=== PATIENT | female | born 1990 | race Caucasian/White ===

== ENCOUNTER 2017-09-17 21:06 | Emergency (ER) | payer MEDICAID ==
[~2017-09-17] VITALS: Ht 175.3 cm; Wt 140.5 kg
[~2017-09-17 21:06] MED LIST: ONDA8TAB9 PO; PEG4000S5 PO
[2017-09-17 21:31] VITALS: BP 147/89
[2017-09-17] MEDS ORDERED: meclizine 12.5mg tablet PO ONE (22:15)
[2017-09-17] MEDS ORDERED: LORazepam 1 MG tablet PO ONE (22:15)
[2017-09-17] MEDS ORDERED: ondansetron 4mg rapidly disintigrating tab PO ONE (22:15)
[2017-09-17] MEDS ORDERED: MECL-111 PO (23:39)
[2017-09-17] MEDS ORDERED: ONDA4TAB12 PO (23:39)
== END 2017-09-17 23:49 | disposition home or self-care (01) ==
LOC: ER 21:07
DX: R42 Dizziness and giddiness (principal); F41.9 Anxiety disorder, unspecified; F32.9 Major depressive disorder, single episode, unspecified; Z88.1 Allergy status to other antibiotic agents; Z91.030 Bee allergy status; Z88.0 Allergy status to penicillin; Z91.018 Allergy to other foods
CPT/HCPCS: 99284; J8597

== ENCOUNTER 2017-09-19 16:29 | Emergency (ER) | payer MEDICAID ==
[~2017-09-19] VITALS: Ht 175.3 cm; Wt 162.0 kg
[~2017-09-19 16:29] MED LIST changes: +MECL-111 PO; +ONDA4TAB12 PO
[2017-09-19] MEDS ORDERED: ondansetron 4mg rapidly disintigrating tab PO ONE (17:20)
[2017-09-19] MEDS ORDERED: diazepam 5mg tablet PO ONE (17:20)
[2017-09-19] MEDS ORDERED: VAL5T PO (17:34)
[2017-09-19] MEDS ORDERED: ONDA8TAB6 PO (17:34)
[2017-09-19 18:34] VITALS: BP 132/89
== END 2017-09-19 18:36 | disposition home or self-care (01) ==
LOC: ER 16:29
DX: R42 Dizziness and giddiness (principal); H93.19 Tinnitus, unspecified ear; Z90.49 Acquired absence of other specified parts of digestive tract; Z88.1 Allergy status to other antibiotic agents; Z88.0 Allergy status to penicillin; Z91.030 Bee allergy status; Z88.8 Allergy status to other drugs, medicaments and biological substances; Z79.899 Other long term (current) drug therapy
CPT/HCPCS: 71045; 93005; 99284

== ENCOUNTER 2018-07-10 15:07 | Emergency (ER) | payer MEDICAID ==
[~2018-07-10] VITALS: Ht 175.3 cm; Wt 165.9 kg
[~2018-07-10 15:07] MED LIST changes: +ONDA8TAB6 PO
[2018-07-10 15:14] VITALS: BP 146/99
[2018-07-10 16:50] LABS: BASOPHILS # (AUTO) 0.1 X10'3 (0-0.2); BASOPHILS % (AUTO) 0.8 % (0-1); EOSINOPHILS # (AUTO) 0.3 X10'3 (0-0.9); EOSINOPHILS % (AUTO) 3.8 % (0-6); HEMATOCRIT 38.1 % (35.0-45.0); HEMOGLOBIN 12.9 g/dl (12.0-16.0); LYMPHOCYTES # (AUTO) 1.7 X10'3 (1.1-4.8); LYMPHOCYTES % (AUTO) 19.9 % (21-51); MEAN CORPUSCULAR HEMOGLOBIN 28.8 PG (27.0-31.0); MEAN CORPUSCULAR HGB CONC 33.9 g/dL (33.0-36.5); MEAN CORPUSCULAR VOLUME 84.9 FL (78-98); MEAN PLATELET VOLUME 7.3 FL (7.4-10.4); MONOCYTES # (AUTO) 0.5 X10'3 (0-0.9); MONOCYTES % (AUTO) 6.4 % (2-12); NEUTROPHILS # (AUTO) 5.8 X10'3 (1.8-7.7); NEUTROPHILS % (AUTO) 69.1 % (42-75); PLATELET COUNT 323 X10'3 (140-440); RED BLOOD COUNT 4.49 X10'6 (4.20-5.60); RED CELL DISTRIBUTION WIDTH 14.3 % (11.5-14.5); WHITE BLOOD COUNT 8.3 X10'3 (4.5-11.0)
[2018-07-10 17:06] LABS: ALANINE AMINOTRANSFERASE 56 U/L (12-78); ALBUMIN 3.7 G/DL (3.4-5.0); ALKALINE PHOSPHATASE 62 IU/L (46-116); ANION GAP 7 (8-16); ASPARTATE AMINO TRANSFERASE 46 U/L (10-37); BILIRUBIN,TOTAL 0.3 MG/DL (0.1-1.0); BLOOD UREA NITROGEN 8 MG/DL (7-18); BUN/CREATININE RATIO 10.1 (6.6-38.0); CHLORIDE 106 MMOL/L (99-107); CREATININE 0.79 MG/DL (0.40-0.90); GLUCOSE 126 MG/DL (70-104); POTASSIUM 3.9 MMOL/L (3.5-5.1); SODIUM 140 MMOL/L (135-145); TOTAL CARBON DIOXIDE 27.2 MMOL/L (24-32); TOTAL PROTEIN 7.3 G/DL (6.4-8.2); eGFR 88 ML/MIN
[2018-07-10 17:08] LABS: URINE AMPHETAMINE SCREEN NEGATIVE (Neg); URINE BARBITUATE SCREEN NEGATIVE (Neg); URINE BENZODIAZEPINES SCREEN NEGATIVE (Neg); URINE CANNABINOID SCREEN NEGATIVE (Neg); URINE COCAINE SCREEN NEGATIVE (Neg); URINE METHADONE SCREEN NEGATIVE (Neg); URINE OPIATE SCREEN NEGATIVE (Neg); URINE PHENCYCLIDINE SCREEN NEGATIVE (Neg)
== END 2018-07-10 17:35 | disposition home or self-care (01) ==
LOC: ER 15:07
DX: R06.02 Shortness of breath (principal); Z00.00 Encounter for general adult medical examination without abnormal findings; Z90.49 Acquired absence of other specified parts of digestive tract; Z88.1 Allergy status to other antibiotic agents; Z91.030 Bee allergy status; Z91.018 Allergy to other foods; Z88.0 Allergy status to penicillin; Z79.899 Other long term (current) drug therapy
CPT/HCPCS: 36415; 80053; 80305; 85025; 99283

== ENCOUNTER 2020-09-14 18:28 | Emergency (ER) | payer MEDICAID ==
[~2020-09-14] VITALS: Ht 177.8 cm; Wt 159.0 kg
[~2020-09-14 18:28] MED LIST changes: -MECL-111 PO; +MECL-159 PO
[2020-09-14 19:02] LABS: BASOPHILS % (AUTO) 0.5 % (0-1); EOSINOPHILS # (AUTO) 0.2 X10'3 (0-0.9); EOSINOPHILS % (AUTO) 2.2 % (0-6); HEMATOCRIT 41.4 % (35.0-45.0); HEMOGLOBIN 13.9 g/dl (12.0-16.0); LYMPHOCYTES # (AUTO) 2.6 X10'3 (1.1-4.8); LYMPHOCYTES % (AUTO) 26.1 % (21-51); MEAN CORPUSCULAR HEMOGLOBIN 29.2 PG (27.0-31.0); MEAN CORPUSCULAR HGB CONC 33.6 g/dL (33.0-36.5); MEAN CORPUSCULAR VOLUME 86.8 FL (78-98); MEAN PLATELET VOLUME 7.1 FL (7.4-10.4); MONOCYTES # (AUTO) 0.7 X10'3 (0-0.9); MONOCYTES % (AUTO) 6.6 % (2-12); NEUTROPHILS # (AUTO) 6.5 X10'3 (1.8-7.7); NEUTROPHILS % (AUTO) 64.6 % (42-75); PLATELET COUNT 319 X10'3 (140-440); RED BLOOD COUNT 4.76 X10'6 (4.20-5.60); RED CELL DISTRIBUTION WIDTH 14.2 % (11.5-14.5)
[2020-09-14 19:10] LABS: ALANINE AMINOTRANSFERASE 25 U/L (12-78); ALBUMIN 3.6 G/DL (3.4-5.0); ALBUMIN/GLOBULIN RATIO 0.9 (1.1-1.5); ALKALINE PHOSPHATASE 52 IU/L (46-116); ANION GAP 6 (8-16); ASPARTATE AMINO TRANSFERASE 19 U/L (10-37); BILIRUBIN,TOTAL 0.3 MG/DL (0.1-1.0); BLOOD UREA NITROGEN 12 MG/DL (7-18); CALCIUM 9.3 MG/DL (8.5-10.1); CHLORIDE 105 MMOL/L (99-107); CREATININE 0.75 MG/DL (0.40-0.90); GLUCOSE 96 MG/DL (70-104); POTASSIUM 4.3 MMOL/L (3.5-5.1); SODIUM 140 MMOL/L (135-145); TOTAL CARBON DIOXIDE 28.8 MMOL/L (24-32); TOTAL PROTEIN 7.5 G/DL (6.4-8.2); eGFR > 90 ML/MIN
[2020-09-14 19:19] LABS: TROPONIN I < 0.04 NG/ML (0.0-0.05)
[2020-09-14 22:52] LABS: D-DIMER < 0.19 MG/L FEU (0-0.50)
[2020-09-14 23:00] VITALS: BP 144/84
== END 2020-09-14 22:58 | disposition home or self-care (01) ==
LOC: ER 18:28
DX: R07.89 Other chest pain (principal); R00.2 Palpitations; R11.0 Nausea; F41.9 Anxiety disorder, unspecified; F32.9 Major depressive disorder, single episode, unspecified; Z90.89 Acquired absence of other organs; Z88.1 Allergy status to other antibiotic agents; Z88.0 Allergy status to penicillin; Z91.030 Bee allergy status; Z91.018 Allergy to other foods; Z79.899 Other long term (current) drug therapy
CPT/HCPCS: 36415; 71045; 80053; 83880; 84484; 85025; 85379; 93005; 99285

== ENCOUNTER 2021-10-23 16:39 | Emergency (ER) | payer MEDICAID ==
[~2021-10-23] VITALS: Ht 175.3 cm; Wt 165.0 kg
[2021-10-23 16:49] VITALS: BP 166/95
[2021-10-23 17:29] LABS: CLARITY,URINE SLIGHTLY CLOUDY (Clear); COLOR,URINE YELLOW (Yellow); GLUCOSE, URINE NEGATIVE (Neg); KETONES,URINE TRACE mg/dl (Neg); LEUKOCYTE ESTERASE ,URINE NEGATIVE (Neg); NITRITES, URINE NEGATIVE (Neg); OCCULT BLOOD,URINE LARGE (Neg); PH,URINE 5.5 (4.8-8.0); PROTEIN,URINE NEGATIVE (Neg); URINE HCG NEGATIVE (NEG); UROBILINOGEN,URINE 0.2 E.U/dL (0.2-1.0)
[2021-10-23 17:29] LABS: EOSINOPHILS # (AUTO) 0.5 X10'3 (0-0.9); HEMOGLOBIN 12.5 g/dl (12.0-16.0); MEAN CORPUSCULAR HEMOGLOBIN 26.4 PG (27.0-31.0)
[2021-10-23 17:31] LABS: BASOPHILS # (AUTO) 0.1 X10'3 (0-0.2); BASOPHILS % (AUTO) 0.5 % (0-1); HEMATOCRIT 38.3 % (35.0-45.0); LYMPHOCYTES # (AUTO) 4.1 X10'3 (1.1-4.8); MEAN CORPUSCULAR HGB CONC 32.6 g/dL (33.0-36.5); MEAN PLATELET VOLUME 7.3 FL (7.4-10.4); MONOCYTES # (AUTO) 0.7 X10'3 (0-0.9); MONOCYTES % (AUTO) 5.8 % (2-12); NEUTROPHILS # (AUTO) 6.6 X10'3 (1.8-7.7); NEUTROPHILS % (AUTO) 55.7 % (42-75); PLATELET COUNT 425 X10'3 (140-440); RED BLOOD COUNT 4.73 X10'6 (4.20-5.60); RED CELL DISTRIBUTION WIDTH 15.2 % (11.5-14.5); WHITE BLOOD COUNT 11.9 X10'3 (4.5-11.0)
[2021-10-23 17:36] LABS: UA COLLECTION TYPE CLN CATCH MIDSTREAM
[2021-10-23 17:40] LABS: ALANINE AMINOTRANSFERASE 38 U/L (12-78); ALBUMIN 3.7 G/DL (3.4-5.0); ALBUMIN/GLOBULIN RATIO 0.9 (1.1-1.5); ALKALINE PHOSPHATASE 53 IU/L (46-116); ANION GAP 11 (8-16); ASPARTATE AMINO TRANSFERASE 21 U/L (10-37); BILIRUBIN,TOTAL 0.3 MG/DL (0.1-1.0); BLOOD UREA NITROGEN 12 MG/DL (7-18); BUN/CREATININE RATIO 12.4 (6.6-38.0); CALCIUM 8.8 MG/DL (8.5-10.1); CHLORIDE 104 MMOL/L (99-107); CREATININE 0.97 MG/DL (0.40-0.90); GLUCOSE 136 MG/DL (70-104); LIPASE 107 U/L (73-393); POTASSIUM 3.4 MMOL/L (3.5-5.1); SODIUM 141 MMOL/L (135-145); TOTAL CARBON DIOXIDE 25.6 MMOL/L (24-32); eGFR 68 ML/MIN
[2021-10-23 18:40] LABS: BACTERIA,URINE FEW /HPF (Neg); RBC,URINE TNTC /HPF (0-2); SQUAMOUS EPITHELIAL CELL,UR MODERATE /LPF (FEW); WBC,URINE 0-4 /HPF (0-4)
[2021-10-23] MEDS ORDERED: ondansetron/PF 4mg/2ml inj IV ONE ×2 (20:20→20:50)
[2021-10-23] MEDS ORDERED: CefTRIAXone 2gm/D5W 50ml BAG 50 ML IV ONE (20:20)
[2021-10-23] MEDS ORDERED: normal saline 1000ML IV soln IVB ONE (20:20)
--- NOTE | 2021-10-23 20:28 | NUR ---
ULTRASOUND PAGED AT [id number]
[2021-10-23] MEDS ORDERED: ketorolac trometh. 30mg/ml inj. IV ONE (20:50)
[2021-10-23] MEDS ORDERED: HYDR-3972 PO (22:19)
[2021-10-23] MEDS ORDERED: ONDA4TAB12 PO (22:19)
== END 2021-10-23 22:35 | disposition home or self-care (01) ==
LOC: ER 16:40
DX: N93.9 Abnormal uterine and vaginal bleeding, unspecified (principal); F31.9 Bipolar disorder, unspecified; Z88.1 Allergy status to other antibiotic agents; Z91.010 Allergy to peanuts; Z79.899 Other long term (current) drug therapy; Z88.0 Allergy status to penicillin; Z91.018 Allergy to other foods
CPT/HCPCS: 36415; 74176; 76700; 80053; 81001; 81025; 83690; 85025; 99284; J7030

== ENCOUNTER 2022-04-07 10:49 | Emergency (ER) | payer MEDICAID ==
[2022-04-07 11:08] VITALS: BP 123/79
== END 2022-04-07 12:05 | disposition home or self-care (01) ==
LOC: ER 10:49
DX: R00.2 Palpitations (principal); R06.02 Shortness of breath; F31.9 Bipolar disorder, unspecified; Z88.0 Allergy status to penicillin; Z88.1 Allergy status to other antibiotic agents; Z91.018 Allergy to other foods; Z91.030 Bee allergy status
CPT/HCPCS: 93005; 99283; 99285

== ENCOUNTER 2023-11-03 00:04 | Emergency (ER) | payer MEDICAID ==
[~2023-11-03] VITALS: Ht 175.3 cm; Wt 155.9 kg
[~2023-11-03 00:04] MED LIST changes: -MECL-159 PO; +MECL-302 PO; +ONDA-243 PO; -ONDA4TAB12 PO
[2023-11-03 00:07] VITALS: TEMP 97.9
[2023-11-03] MEDS ORDERED: ONDA-243 PO (00:39)
[2023-11-03] MEDS ORDERED: DOXY-1 PO (00:45)
[2023-11-03 00:51] VITALS: BP 144/82; PULSE 106; O2SAT 97
[2023-11-03] MEDS: ondansetron 4mg/5ml UD cup PO ONE (00:57)
[2023-11-03] MEDS: DOXYCYCLINE 100MG CAPSULE PO STA (00:58)
[2023-11-03] MEDS: naproxen 500mg tablet PO ONE (00:58)
[2023-11-03 00:59] VITALS: RESP 17
[2023-11-03] MEDS: HYDROcodone/acetaminophen 5mg/325mg tablet PO ONE (00:59)
== END 2023-11-03 01:13 | disposition home or self-care (01) ==
LOC: ER 00:05
DX: G89.29 Other chronic pain (principal); M25.562 Pain in left knee; M25.561 Pain in right knee; L03.116 Cellulitis of left lower limb; M25.462 Effusion, left knee; M25.461 Effusion, right knee; F32.A Depression, unspecified; F41.9 Anxiety disorder, unspecified; Z88.1 Allergy status to other antibiotic agents; Z91.030 Bee allergy status; Z88.0 Allergy status to penicillin; Z88.8 Allergy status to other drugs, medicaments and biological substances; Z79.2 Long term (current) use of antibiotics; Z79.899 Other long term (current) drug therapy; Z90.49 Acquired absence of other specified parts of digestive tract
CPT/HCPCS: 99284; A6449

== ENCOUNTER 2025-03-15 16:22 | Emergency (ER) | payer MEDICAID ==
[~2025-03-15] VITALS: Ht 180.3 cm; Wt 167.4 kg
--- NOTE | 2025-03-15 17:24 | Physician Documentation ---
HPI ~ General Chief Complaint: Tooth Problem Stated Complaint: TOOTH PAIN Time Seen by MD: 18:41 Primary Medical Doctor: pita west History of Present Illness HPI Comment Patient is seen today with complaints of dental pain of lower left molar. Patient has multiple fillings that states this tooth broke and she did receive clindamycin 300 mg couple of days ago and states he has taken four doses so far. She states she feels his over head is on fire and was concerned she might be going septic because she just feels funny. Patient states her friend recommended her be checked out for sepsis. Patient has no other concern or complaint at this time. 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/16) Scheduled Ondansetron (Zofran Odt), 1 TAB PO Q8H Ondansetron Hcl (Zofran), 1 TAB PO Q8H Peg 3350/Na Sulf,Bicarb,Cl/Kcl (Golytely Solution), 4,000 ML PO 10XD Scheduled PRN Meclizine HCl (Meclizine HCl), 1 TAB PO TID PRN PRN for dizziness/vertigo ONDANSETRON ODT 4mg tablet (Ondansetron Odt), 1 TABLET PO Q6H PRN for nausea/vomiting ONDANSETRON ODT 4mg tablet (Ondansetron Odt), 1 TABLET PO Q8H PRN for NAUSEA ONDANSETRON ODT 4mg tablet (Ondansetron Odt), 1 TAB PO Q6H PRN PRN for nausea/vomiting Past Medical History Past Medical History: Headache, Anxiety, Depression Past Surgical History: appendectomy Alcohol Use: None Drug Use: none Lives with: S/O, Family Lives In: Home Occupation: employed Review of Systems ROS All review of systems negative except as per HPI Physical Exam Vital Signs: Temperature: 97.7, Heart Rate: 78, Respiratory Rate: 12, BP: 156/98, Pulse Oximetry: 97, Weight: 167.400 Physical Exam General: Patient is awake, alert, oriented x4 in no acute distress Head: Normocephalic and atraumatic. Eyes: Conjunctival normal. EOMI. PERRL. ENT: Mucous membranes moist. Poor dentition. No abscess. No trismus Neck: Supple, trachea is midline. Chest: Clear to auscultation bilaterally without rales, rhonchi, or wheezes. There is no accessory muscle use or retractions. Cardiac: RRR without murmurs, gallops, or rubs. Progress Results/Orders Results/Orders Medications Received in ER Medications (Trade) Dose Ordered Sig/Talya Route PRN Reason Start Time Stop Time Status Last Admin Dose Admin (Toradol inj. 30mg/ml) 30 mg ONCE STAT IM 03/15/25 17:14 03/15/25 17:15 DC 03/15/25 18:13 30 MG (Tylenol tablet) 650 mg ONCE STAT PO 03/15/25 17:14 03/15/25 17:15 DC 03/15/25 18:14 650 MG ([place] 10/325mg tab) 1 tab ONCE STAT PO 03/15/25 17:14 03/15/25 17:16 DC 03/15/25 18:14 1 TAB Vital Signs 03/15/25 03/15/25 03/15/25 16:34 18:13 18:14 Temp 97.7 Pulse 78 Resp 12 20 20 B/P (MAP) 156/98 Pulse Ox 97 Medical Decision Making Additional information obtaine: N/A Findings Patient presented to the emergency room with dental pain as per HPI. Differentials include but are not limited to dental caries, dental abscess, deep tissue infection, referred pain, sepsis. Patient's vital signs are stable and she is not septic and she is already on antibiotics. We will give her additional pain medication. Physical exam is reassuring she is not septic appearing I do not feel patient requires imaging or labs for investigation into possible deep tissue infection. Differential Dx:Considerations: Include: Alveolar fracture, Alveolar osteitis, ANUG, Facial Cellulitis, Periapical abscess, Peridontal abscess, Post-extraction bleeding, Pulpitis, Tooth avulsion, Tooth eruption, Tooth Fracture, Trigeminal neuralgia, Tooth subluxation, Other Departure Disposition: 01 HOME / SELF CARE / HOMELESS Impression: Primary Impression: Toothache Condition: Stable Discharge Instructions: Dental Pain Referrals: NO PRIMARY CARE PROVIDER (PCP) Prescriptions Hydrocodone Bit/Acetaminophen 5/325 MG ([place] 5/325 MG) 5 Mg/325 Mg Tablet 1-2 TAB PO Q4-6 hours PRN for pain, #12 TAB Prov: DOUGLAS GARCIA MD 03/15/25 Signature Scribe Signature: No scribe Attestation: The note accurately reflects work and decisions made by me.Douglas Garcia MD 03/15/25 18:49 CYRUS ROBLERO PAC Mar 15, 2025 17:24 DOUGLAS GARCIA MD Mar 15, 2025 18:49
[2025-03-15] MEDS: ketorolac trometh 30MG/ML vial 30 MG/ML VIAL IM STA (18:13)
[2025-03-15] MEDS: HYDROcodone/acetaminophen 10/325mg tab PO STA (18:14)
[2025-03-15] MEDS ORDERED: HYDR-3965 PO (18:49)
[2025-03-15 19:05] VITALS: BP 155/92; PULSE 76; RESP 18; TEMP 98.6; O2SAT 99
--- NOTE | 2025-03-15 22:49 | Physician Documentation ---
HPI ~ General Chief Complaint: Tooth Problem Stated Complaint: TOOTH PAIN Time Seen by MD: 18:41 Primary Medical Doctor: pita west History of Present Illness HPI Comment Patient presents to the emergency room for evaluation of dental pain. She was seen recently by her primary and placed on clindamycin. She has taken ibuprofen and Tylenol with limited benefit. No fevers. She has contacted his dentist and has a appointment and a proximally a month Medication Reconciliation Allergies: Coded Allergies: amoxicillin (Verified Allergy, Unknown, 03/15/25) bee venom protein (honey bee) (Verified Allergy, Unknown, 03/15/25) guidry (Verified Allergy, Unknown, 03/15/25) penicillin V potassium (Verified Allergy, Unknown, 03/15/25) Uncoded Allergies: ALL CLINICAL UNIT EDUCATOR (Allergy, Unknown, 09/03/16) Scheduled Ondansetron (Zofran Odt), 1 TAB PO Q8H Ondansetron Hcl (Zofran), 1 TAB PO Q8H Peg 3350/Na Sulf,Bicarb,Cl/Kcl (Golytely Solution), 4,000 ML PO 10XD Scheduled PRN Hydrocodone Bit/Acetaminophen 5/325 MG ([place] 5/325 MG), 1-2 TAB PO Q4-6 hours PRN for pain Meclizine HCl (Meclizine HCl), 1 TAB PO TID PRN PRN for dizziness/vertigo ONDANSETRON ODT 4mg tablet (Ondansetron Odt), 1 TABLET PO Q6H PRN for nausea/vomiting ONDANSETRON ODT 4mg tablet (Ondansetron Odt), 1 TABLET PO Q8H PRN for NAUSEA ONDANSETRON ODT 4mg tablet (Ondansetron Odt), 1 TAB PO Q6H PRN PRN for nausea/vomiting Past Medical History Past Medical History: Headache, Anxiety, Depression Past Surgical History: appendectomy Alcohol Use: None Drug Use: none Lives with: S/O, Family Lives In: Home Occupation: employed Review of Systems ROS All review of systems negative except as per HPI Physical Exam Vital Signs: Temperature: 98.6, Source: Temporal, Heart Rate: 76, Respiratory Rate: 18, BP: 155/92, Pulse Oximetry: 99, Weight: 167.400 Physical Exam General: Patient is awake, alert, oriented x4 in no acute distress Head: Normocephalic and atraumatic. Eyes: Conjunctival normal. EOMI. PERRL. ENT: Mucous membranes moist. Poor dentition. No appreciable abscess. No facial swelling Neck: Supple, trachea is midline. Chest: Clear to auscultation bilaterally without rales, rhonchi, or wheezes. There is no accessory muscle use or retractions. Cardiac: RRR without murmurs, gallops, or rubs. Abd: Soft, nondistended, nontender, with normoactive bowel sounds. No guarding, rebound, or rigidity. Progress Results/Orders Results/Orders Medications Received in ER Medications (Trade) Dose Ordered Sig/Talya Route PRN Reason Start Time Stop Time Status Last Admin Dose Admin (Toradol inj. 30mg/ml) 30 mg ONCE STAT IM 03/15/25 17:14 03/15/25 17:15 DC 03/15/25 18:13 30 MG (Tylenol tablet) 650 mg ONCE STAT PO 03/15/25 17:14 03/15/25 17:15 DC 03/15/25 18:14 650 MG ([place] 10/325mg tab) 1 tab ONCE STAT PO 03/15/25 17:14 03/15/25 17:16 DC 03/15/25 18:14 1 TAB Vital Signs 03/15/25 03/15/25 03/15/25 03/15/25 16:34 18:13 18:14 19:05 Temp 97.7 98.6 Pulse 78 76 Resp 12 20 20 18 B/P (MAP) 156/98 155/92 Pulse Ox 97 99 Medical Decision Making Additional information obtaine: old records Findings Patient presents to the emergency room with dental pain that has per HPI. No abscess and he had not believe patient requires CT scan for investigation of deep tissue infection or labs given stable vitals. Differential Dx:Considerations: Include: Alveolar fracture, Alveolar osteitis, ANUG, Facial Cellulitis, Periapical abscess, Peridontal abscess, Post-extraction bleeding, Pulpitis, Tooth avulsion, Tooth eruption, Tooth Fracture, Trigeminal neuralgia, Tooth subluxation, Other Departure Disposition: 01 HOME / SELF CARE Impression: Primary Impression: Toothache Condition: Stable Discharge Instructions: Dental Pain Referrals: NO PRIMARY CARE PROVIDER (PCP) Prescriptions Hydrocodone Bit/Acetaminophen 5/325 MG ([place] 5/325 MG) 5 Mg/325 Mg Tablet 1-2 TAB PO Q4-6 hours PRN for pain, #12 TAB Prov: DOUGLAS GARCIA MD 03/15/25 Signature Scribe Signature: No scribe Attestation: The note accurately reflects work and decisions made by me.Douglas Garcia MD 03/15/25 22:48 DOUGLAS GARCIA MD Mar 15, 2025 22:49
== END 2025-03-15 19:06 | disposition home or self-care (01) ==
LOC: ER 16:23
DX: K08.89 Other specified disorders of teeth and supporting structures (principal); F41.9 Anxiety disorder, unspecified; F32.A Depression, unspecified; Z90.49 Acquired absence of other specified parts of digestive tract; Z91.030 Bee allergy status; Z88.8 Allergy status to other drugs, medicaments and biological substances; Z88.0 Allergy status to penicillin; Z91.018 Allergy to other foods
CPT/HCPCS: 96372; 99283; J1885